=== PATIENT | male | born 1940 | race Caucasian/White ===

== ENCOUNTER 2018-05-06 01:01 | Emergency (ER) | payer MEDICARE, OTHER ==
[2018-05-06] MEDS ORDERED: NS(*) 0.9% 1000 ML BAG 1,000 ML IV ONE (01:04)
--- NOTE | 2018-05-06 01:04 | ER Report ---
History and Physical Time Seen By MD: 01:03 HPI/ROS CHIEF COMPLAINT: Severe left lower back pain HISTORY OF PRESENT ILLNESS: 77-year-old male traveling from [place] to [place] to visit his son who is a physician as a history of chronic back problems. He's been riding in the car for the last day. He's developed left lower back pain. Tonight it acute spasm in his hotel room. He is unable to move to get up. He describes 10 out of 10 pain without radiation dose lower externally. He's. He denies incontinence. He states he has a history of a disc problem. Patient states he used to do a lot of physical labor such as biking hay caused him to develop a chronic back condition. She notes no radiation of the symptoms down his lower extremities. REVIEW OF SYSTEMS: Respiratory: No cough, no dyspnea. Cardiovascular: No chest pain, no palpitations. Gastrointestinal: No vomiting, no abdominal pain. Musculoskeletal: As above Allergies: Coded Allergies: Sulfa (Sulfonamide Antibiotics) (Verified Allergy, Intermediate, 05/06/18) [facility] Home Meds Active Scripts Methocarbamol (ROBAXIN-750) 750 Mg Tablet, 1-2 TAB PO TID Y for muscle spasm relief, #20 Prov:DULCE BOB DO 05/06/18 Oxycodone Hcl/Acetaminophen (PERCOCET 5-325 MG TABLET) 1 Each Tablet, 1-2 EACH PO Q4-6H Y for PAIN, #15 Prov:DULCE BOB DO 05/06/18 Reported Medications Omeprazole (OMEPRAZOLE) 40 Mg Capsule.dr, 40 MG PO BID, CAP 05/06/18 Apixaban (ELIQUIS) 2.5 Mg Tablet, 2.5 MG PO 05/06/18 Metoprolol Succinate (METOPROLOL SUCCINATE) 50 Mg Tab.er.24h, 1 TAB PO QDAY, TAB 05/06/18 Past Medical/Surgical History A. fib, GERD, hypertension Reviewed Nurses Notes: Yes Old Medical Records Reviewed: Yes Constitutional Vital Sign - Last 24 Hours 05/06/18 05/06/18 05/06/18 05/06/18 01:01 01:02 01:16 01:29 Temp 99.3 Pulse 69 70 66 Resp 20 B/P (MAP) 114/79 (91) 114/79 115/65 (82) Pulse Ox 90 90 97 O2 Delivery Room Air 05/06/18 05/06/18 05/06/18 05/06/18 01:46 02:00 02:01 02:16 Pulse 80 78 ??? B/P (MAP) 116/66 (83) Pulse Ox 96 96 05/06/18 02:30 B/P (MAP) 111/71 (84) Physical Exam Vital signs stable, fever 99.3. Pulse ox normal General Appearance: The patient is alert, has no immediate need for airway protection and no current signs of toxicity. Moderate distress HEENT: Pupils equal and round no injection. Oropharynx without redness or exudate, mucous. Membranes are moist Respiratory: Chest is non tender, lungs are clear to auscultation. Cardiac: regular rate and rhythm Gastrointestinal: Abdomen is soft and non tender, no masses, bowel sounds normal. Musculoskeletal: Neck: Neck is supple and non tender. Back: There is no tenderness along the spinal midline. There is no tenderness in the paraspinous muscles. Patient is extreme tenderness in the left SI joint. Extremities have full range of motion and are non tender. Skin: No rashes or lesions. DIFFERENTIAL DIAGNOSIS: After history and physical exam differential diagnosis was considered for back pain including but not limited to muscular pain, herniated disc, spine fracture, intra-abdominal causes and urinary tract infection. Medical Decision Making Data Points Result Diagram: 05/06/18 0100 05/06/18 0100 Laboratory Hematology Test 05/06/18 01:00 Red Blood Count 5.24 M/uL (4.00-5.60) Mean Corpuscular Volume 94.2 fL (80.0-96.0) Mean Corpuscular Hemoglobin 32.8 pg (26.0-33.0) Mean Corpuscular Hemoglobin Concent 34.8 g/dL (32.0-36.0) Red Cell Distribution Width 13.5 % (11.5-14.5) Mean Platelet Volume 7.6 fL (7.2-11.1) Neutrophils (%) (Auto) 68.5 % (39.4-72.5) Lymphocytes (%) (Auto) 21.9 % (17.6-49.6) Monocytes (%) (Auto) 5.9 % (4.1-12.4) Eosinophils (%) (Auto) 2.9 % (0.4-6.7) Basophils (%) (Auto) 0.8 % (0.3-1.4) Nucleated RBC Relative Count (auto) 0.0 /100WBC Neutrophils # (Auto) 6.4 K/uL (2.0-7.4) Lymphocytes # (Auto) 2.1 K/uL (1.3-3.6) Monocytes # (Auto) 0.6 K/uL (0.3-1.0) Eosinophils # (Auto) 0.3 K/uL (0.0-0.5) Basophils # (Auto) 0.1 K/uL (0.0-0.1) Nucleated RBC Absolute Count (auto) 0.00 K/uL Erythrocyte Sedimentation Rate 1 mm/HOUR (0-20) Sodium Level 139 mmol/L (137-145) Potassium Level 3.8 mmol/L (3.5-5.0) Chloride Level 101 mmol/L (98-107) Carbon Dioxide Level 28 mmol/L (22-30) Blood Urea Nitrogen 16 mg/dl (9-21) Creatinine 0.90 mg/dl (0.66-1.25) Glomerular Filtration Rate Calc > 60.0 Random Glucose 90 mg/dl (75-110) Calcium Level 8.9 mg/dl (8.4-10.2) Total Bilirubin 0.7 mg/dl (0.2-1.3) Aspartate Amino Transf (AST/SGOT) 38 U/L (0-35) Alanine Aminotransferase (ALT/SGPT) 24 U/L (0-56) Alkaline Phosphatase 49 U/L (0-126) C-Reactive Protein 1.3 mg/dl (<1.0) Total Protein 7.2 g/dl (6.3-8.2) Albumin 4.1 g/dl (3.5-5.0) Chemistry Test 05/06/18 01:00 White Blood Count 9.3 k/uL (4.5-11.0) Red Blood Count 5.24 M/uL (4.00-5.60) Hemoglobin 17.2 g/dL (14.0-18.0) Hematocrit 49.4 % (42.0-52.0) Mean Corpuscular Volume 94.2 fL (80.0-96.0) Mean Corpuscular Hemoglobin 32.8 pg (26.0-33.0) Mean Corpuscular Hemoglobin Concent 34.8 g/dL (32.0-36.0) Red Cell Distribution Width 13.5 % (11.5-14.5) Platelet Count 200 K/uL (150-450) Mean Platelet Volume 7.6 fL (7.2-11.1) Neutrophils (%) (Auto) 68.5 % (39.4-72.5) Lymphocytes (%) (Auto) 21.9 % (17.6-49.6) Monocytes (%) (Auto) 5.9 % (4.1-12.4) Eosinophils (%) (Auto) 2.9 % (0.4-6.7) Basophils (%) (Auto) 0.8 % (0.3-1.4) Nucleated RBC Relative Count (auto) 0.0 /100WBC Neutrophils # (Auto) 6.4 K/uL (2.0-7.4) Lymphocytes # (Auto) 2.1 K/uL (1.3-3.6) Monocytes # (Auto) 0.6 K/uL (0.3-1.0) Eosinophils # (Auto) 0.3 K/uL (0.0-0.5) Basophils # (Auto) 0.1 K/uL (0.0-0.1) Nucleated RBC Absolute Count (auto) 0.00 K/uL Erythrocyte Sedimentation Rate 1 mm/HOUR (0-20) Glomerular Filtration Rate Calc > 60.0 Calcium Level 8.9 mg/dl (8.4-10.2) Total Bilirubin 0.7 mg/dl (0.2-1.3) Aspartate Amino Transf (AST/SGOT) 38 U/L (0-35) Alanine Aminotransferase (ALT/SGPT) 24 U/L (0-56) Alkaline Phosphatase 49 U/L (0-126) C-Reactive Protein 1.3 mg/dl (<1.0) Total Protein 7.2 g/dl (6.3-8.2) Albumin 4.1 g/dl (3.5-5.0) ED Course/Re-evaluation Clinical Indication for ER IV: IV Access ED Course Patient was admitted to an examination room. H&P was done. The differential diagnoses was considered. Patient without neurologic findings. He is a nonfocal exam. He has severe muscle spasm and back pain in the left SI joint and the left lower back. Patient's medicated with Zofran by EMS prior to arrival. Patient received Robaxin 1500 mg IV and morphine 4 mg IV. Patient also receives Toradol 30 mg after his laboratory studies show normal renal function., Patient continued to have pain, was given additional morphine 2 mg, Solu-Medrol 125 mg IV and Ativan 1 mg IV. Patient slept for one hour. Patient was able to sit up on the bed on his own. Patient was able to ambulate a few steps. Patient agreeable to being discharged home with pain medication and muscle relaxants. Patient given a prescription for Percocet and Robaxin. He is advised to continue ibuprofen 600 mg 3 times daily with food. Patient advised to a heating pad on his back. Patient advised to follow-up with his primary care doctor upon returning home. He's planning on continuing to [place] to see his son a physician. Decision to Disposition Date: May 06, 2018 Decision to Disposition Time: 03:55 Depart Departure Latest Vital Signs Vital Signs Date Time Temp Pulse Resp B/P (MAP) Pulse Ox O2 Delivery O2 Flow Rate FiO2 05/06/18 02:30 111/71 (84) 05/06/18 02:16 ??? 05/06/18 02:01 96 05/06/18 01:02 99.3 20 Room Air Impression: Primary Impression: Back pain Additional Impression: Sacroiliitis Condition: Improved Disposition: HOME OR SELF-CARE New Scripts Methocarbamol (ROBAXIN-750) 750 Mg Tablet 1-2 TAB PO TID Y for muscle spasm relief, #20 Prov: DULCE BOB DO 05/06/18 Oxycodone Hcl/Acetaminophen (PERCOCET 5-325 MG TABLET) 1 Each Tablet 1-2 EACH PO Q4-6H Y for PAIN, #15 Prov: DULCE BOB DO 05/06/18 Patient Instructions: Back Pain (ED) Additional Instructions: Take ibuprofen 200 mg 3 tablets 3 times a day with food Apply heating pad to your lower back Follow-up with your primary care physician upon returning home Go to the nearest ER for any worsening Problem Qualifiers Primary Impression: Back pain Back pain location: low back pain Chronicity: acute Back pain laterality: left Sciatica presence: without sciatica Qualified Codes: M54.5 - Low back pain DULCE BOB DO May 06, 2018 01:04
[2018-05-06] MEDS ORDERED: MORPHINE 4 MG/ML SDV IVP ONE (01:05)
[2018-05-06] MEDS ORDERED: METO50TA19 PO (01:06)
[2018-05-06] MEDS ORDERED: APIX2.5T PO (01:06)
[2018-05-06] MEDS ORDERED: OMEP40CA48 PO (01:07)
[2018-05-06] MEDS ORDERED: METHOCARBAMOL IVP ONE (01:15)
[2018-05-06 01:20] LABS: PLATELET COUNT, AUTOMATED 200 K/uL (150-450)
[2018-05-06] MEDS ORDERED: KETOROLAC 30 MG/ML VIAL IVP ONE (01:55)
[2018-05-06] MEDS ORDERED: LORazepam 2 MG/ML VIAL IVP ONE (02:15)
[2018-05-06] MEDS ORDERED: MORPHINE 2 MG/ML SYR IVP ONE (02:15)
[2018-05-06] MEDS ORDERED: DEXAMETHASONE SOD PHOS 10MG/ML IVP ONE (02:15)
[2018-05-06 02:30] VITALS: BP 111/71
[2018-05-06] MEDS ORDERED: methylPREDNIS SUCC 125 MG/2ML IVP ONE (02:30)
[2018-05-06] MEDS ORDERED: METHOCARBAMOL ONE (03:54)
[2018-05-06] MEDS ORDERED: oxyCODONE/ACETAMIN 5/325MG TH 2 TAB/BOTTLE PO ONE ×2 (03:55)
[2018-05-06] MEDS ORDERED: IBUPROFEN 600 MG TAB TH PO ONE (03:55)
[2018-05-06] MEDS ORDERED: METHOCARBAMOL 500 MG TAB PO ONE (03:55)
[2018-05-06] MEDS ORDERED: OXYC-865 PO (03:58)
[2018-05-06] MEDS ORDERED: METH-543 PO (03:58)
== END 2018-05-06 04:05 | disposition home or self-care (01) ==
LOC: ER 01:15
DX: M46.1 Sacroiliitis, not elsewhere classified (principal); M54.5 Low back pain
CPT/HCPCS: 85025; 85651; 86140; 96361; 96374; 96375; 96376; 99284; A9270; J1885; J2060; J2270; J2800; J2930; J7030; 82040; 82247; 82310; 82374; 82435; 82565; 82947; 84075; 84132; 84155; 84295; 84450; 84460; 84520

== ENCOUNTER → 2018-05-06 | Outpatient (CLI) | payer MEDICARE, OTHER ==
[~2018-05-06] MED LIST: APIX2.5T PO; METH-543 PO; METO50TA19 PO; OMEP40CA48 PO; OXYC-865 PO
== END ==
LOC: AMB 00:35
PROVIDERS: ATTEND Nurse Practitioner
DX: M54.5 Low back pain (principal)
CPT/HCPCS: A0425; A0427